=== PATIENT | female | born 1945 | race Caucasian/White ===

== ENCOUNTER 2021-05-04 15:20 | Inpatient (IN) | payer MEDICARE, OTHER ==
[~2021-05-04] VITALS: Ht 154.9 cm; Wt 81.0 kg
[~2021-05-04 15:20] MED LIST: ADVAIR 250-501 EACH INH; ASPIRIN325 MG PO; SIMVASTATIN5 MG PO; VENTOLIN HFA18 GM INH; VITAMIN C1000 M1 PO; VITAMIN D1000 UNIT PO
[2021-05-04] MEDS ORDERED: ANORO ELLIPTA1 EACH INH (15:30)
[2021-05-04] MEDS ORDERED: SIMVASTATIN80 MG PO (19:01)
[2021-05-04] MEDS ORDERED: ALBUTEROL2.5 MG/3 M INH (19:04)
[2021-05-04] MEDS ORDERED: IPRATROPIU0.2 MG/1 M INH (19:04)
[2021-05-05] MEDS ORDERED: MULTI VITAMIN1 EACH PO (11:11)
[2021-05-05] MEDS ORDERED: GLUCOSAMINE1000 MG PO (11:11)
[2021-05-05] MEDS ORDERED: NEURIVA PLUS B1 EACH PO (11:11)
--- NOTE | 2021-05-05 18:14 | EKG ---
[facility] [address] [facility] [place] [address] Signed Normal sinus rhythm Low voltage QRS Borderline ECG When compared with ECG of 29-MAY-2016 16:09, No significant change was found Confirmed by VERONICA LAZO MD ([id number]) on 05/05/2021 6:13:53 PM Electronically Signed By: VERONICA LAZO MD 05/05/[id number] PATIENT NAME: ARNOLDO MCHUGHGOPAL MCKEONY Electrocardiogram DATE OF : 45 PHYSICIAN: VERONICA LAZO MD REPORT #: [id number] REPORT IS CONFIDENTIAL AND NOT TO BE RELEASED WITHOUT AUTHORIZATION
[2021-05-10] MEDS ORDERED: BENZONATATE100 MG PO (11:13)
[2021-05-10] MEDS ORDERED: PREDNISONE20 MG PO (11:13)
[2021-05-10] MEDS ORDERED: IPRAT-ALBUT 0.5-3 ML INH (11:14)
[2021-05-10] MEDS ORDERED: BUDESONIDE0.5 MG/2 M INH (11:15)
== END 2021-05-10 15:05 | disposition home or self-care (01) | DRG 189 ==
LOC: ED 15:20 → MS 17:58
PROVIDERS: ADMIT Internal Medicine; ATTEND Internal Medicine
DX: J96.01 Acute respiratory failure with hypoxia (principal); J44.1 Chronic obstructive pulmonary disease with (acute) exacerbation; E78.5 Hyperlipidemia, unspecified; Z20.822 Contact with and (suspected) exposure to COVID-19; Z88.0 Allergy status to penicillin; Z79.899 Other long term (current) drug therapy; E78.00 Pure hypercholesterolemia, unspecified; Z90.711 Acquired absence of uterus with remaining cervical stump; Z87.891 Personal history of nicotine dependence; Z79.82 Long term (current) use of aspirin
CPT/HCPCS: 71045; 80053; 82803; 83735; 83880; 84484; 85025; 93005; 93010; 94640; 94644; 94664; 94668; 94760; 94761; 96374; 99285-25; 99406; C9803; J1650; J1885; J2930; U0003